=== PATIENT | female | born 1960 | race American Indian/Alaskan Native ===

== ENCOUNTER 2017-05-14 02:39 | Emergency (ER) | payer SELFPAY ==
[2017-05-14 04:56] LABS: Basophils % (Auto) 0.3 % (0.0-1.8); Eosinophils % (Auto) 0.3 % (0.0-4.3); Hematocrit 37.6 % (30.3-42.9); Hemoglobin 12.7 gm/dl (10.1-14.3); Lymphocytes # (Auto) 0.5 K/mm3 (1.2-5.4); Lymphocytes % (Auto) 5.6 % (13.4-35.0); Mean Corpuscular HGB Conc 34 % (30-34); Mean Corpuscular Hemoglobin 31 pg (28-32); Mean Corpuscular Volume 92 fl (79-97); Monocytes # (Auto) 0.6 K/mm3 (0.0-0.8); Monocytes % (Auto) 6.9 % (0.0-7.3); Platelet Count 133 K/mm3 (140-440); Red Cell Distribution Width 13.8 % (13.2-15.2)
[2017-05-14 05:15] LABS: Alanine Aminotransferase 8 units/L (7-56); Albumin 4.1 g/dL (3.9-5); BUN/Creatinine Ratio 14; Blood Urea Nitrogen 7 mg/dL (7-17); Hemolysis Index 4
[2017-05-14 05:47] LABS: Bacteria,Urine 2+ /HPF (Negative); Bilirubin,Urine NEG (Negative); Blood,Urine NEG (Negative); Color,Urine Yellow (Yellow); Mucus,Urine 3+ /HPF
[2017-05-14] MEDS ORDERED: PERCOCET 5/325 PO ONE (06:38)
[2017-05-14] MEDS ORDERED: ZOFRAN ODT PO ONE (06:38)
--- NOTE | 2017-05-14 06:43 | Emergency Department Report ---
ED Abdominal Pain HPI - General Chief Complaint: Abdominal Pain Stated Complaint: ABD PAIN Time Seen by Provider: 05/14/17 06:24 Source: patient, family Mode of arrival: Ambulatory Limitations: No Limitations - History of Present Illness Initial Comments: Mrs. Soto is a healthy 57-year-old female with history of uterine fibroids. She underwent myomectomy at [facility] 6-7 years ago. When the uterine fibroids returned, further surgery was recommended. She elected to decline surgery. She was hoping that the uterine fibroids would decrease in size during menopause. She's never had pain with the fibroids. She's never had any abnormal vaginal bleeding. Until 6 months ago, she was having normal monthly menses. She is now beginning menopause. Now she has still gradual onset of left lower quadrant and right lower quadrant pain radiating to both flanks. She does have abdominal distention. She denies dysuria. She denies urinary frequency. Patient is otherwise healthy without any other medical conditions. MD Complaint: abdominal pain -: Gradual, days(s) (2) Location: LLQ, RLQ Radiation: L flank, R flank Severity scale (0 -10): 10 Quality: aching, sharp Consistency: constant Improves With: rest Worsens With: movement Associated Symptoms: denies other symptoms - Related Data LMP (females 10-50): other (6 months prior) Previous Rx's Medication Instructions Recorded Last Taken Type HYDROcodone/APAP 5-325 [[place] 1 each PO Q4HR PRN #20 tablet 05/14/17 Unknown Rx 5/325] Ibuprofen 800 mg PO Q6HR PRN #20 tablet 05/14/17 Unknown Rx Allergies Allergy/AdvReac Type Severity Reaction Status Date / Time No Known Allergies Allergy Unverified 05/14/17 04:04 ED Review of Systems ROS: Stated complaint: ABD PAIN Other details as noted in HPI Comment: All other systems reviewed and negative Constitutional: denies: fever, malaise Respiratory: denies: cough Cardiovascular: denies: chest pain ED Past Medical Hx - Past Medical History Previous Medical History?: Yes Additional medical history: h/o fibroids - Surgical History Past Surgical History?: Yes Additional Surgical History: fibroidectomy - Social History Smoking Status: Never Smoker Substance Use Type: None - Medications Home Medications: Home Medications Medication Instructions Recorded Confirmed Last Taken Type HYDROcodone/APAP 5-325 [[place] 1 each PO Q4HR PRN #20 tablet 05/14/17 Unknown Rx 5/325] Ibuprofen 800 mg PO Q6HR PRN #20 tablet 05/14/17 Unknown Rx ED Physical Exam - General Limitations: No Limitations General appearance: alert, in no apparent distress - Head Head exam: Present: atraumatic, normocephalic - Eye Eye exam: Present: normal appearance - ENT ENT exam: Present: normal orophraynx, mucous membranes moist - Neck Neck exam: Present: normal inspection. Absent: meningismus - Respiratory Respiratory exam: Present: normal lung sounds bilaterally. Absent: respiratory distress, wheezes, rales, rhonchi - Cardiovascular Cardiovascular Exam: Present: regular rate, normal rhythm, normal heart sounds. Absent: systolic murmur, diastolic murmur, rubs, gallop - GI/Abdominal GI/Abdominal exam: Present: soft, distended, normal bowel sounds, other (20 week uterus palpated fundus of the uterus 6 centimeters above the umbilicus). Absent: tenderness, guarding, rebound - Extremities Exam Extremities exam: Present: normal inspection - Back Exam Back exam: Present: normal inspection - Neurological Exam Neurological exam: Present: alert, oriented X3 - Psychiatric Psychiatric exam: Present: normal affect, normal mood - Skin Skin exam: Present: warm, dry, intact, normal color. Absent: rash ED Course Vital Signs 05/14/17 05/14/17 05/14/17 04:04 05:35 06:00 Temperature 98.4 F 98.2 F Pulse Rate 77 95 H Respiratory 18 19 Rate Blood Pressure 138/81 118/74 Blood Pressure 127/75 [Left] O2 Sat by Pulse 100 99 Oximetry 05/14/17 07:00 Temperature Pulse Rate Respiratory Rate Blood Pressure 121/74 Blood Pressure [Left] O2 Sat by Pulse 99 Oximetry ED Medical Decision Making - Lab Data Result diagrams: 05/14/17 04:37 05/14/17 04:37 Laboratory Results - last 24 hr 05/14/17 05/14/17 05/14/17 04:37 04:37 05:04 WBC 9.3 RBC 4.10 Hgb 12.7 Hct 37.6 MCV 92 MCH 31 MCHC 34 RDW 13.8 Plt Count 133 L Lymph % (Auto) 5.6 L Conway % (Auto) 6.9 Eos % (Auto) 0.3 Baso % (Auto) 0.3 Lymph # 0.5 L Conway # 0.6 Eos # 0.0 Baso # 0.0 Seg Neutrophils % 86.9 H Seg Neutrophils # 8.1 H Sodium 138 Potassium 3.8 Chloride 96.1 L Carbon Dioxide 28 Anion Gap 18 BUN 7 Creatinine 0.5 L Estimated GFR > 60 BUN/Creatinine Ratio 14 Glucose 110 H Calcium 9.0 Total Bilirubin 0.60 AST 15 ALT 8 Alkaline Phosphatase 63 Total Protein 7.6 Albumin 4.1 Albumin/Globulin Ratio 1.2 Urine Color Yellow Urine Turbidity Clear Urine pH 6.0 Ur Specific Whitney 1.023 Urine Protein 30 mg/dl Urine Glucose (UA) Neg Urine Ketones 20 Urine Blood Neg Urine Nitrite Neg Urine Bilirubin Neg Urine Urobilinogen 2.0 Ur Leukocyte Esterase Neg Urine WBC (Auto) 1.0 Urine RBC (Auto) 2.0 U Epithel Cells (Auto) 12.0 Urine Bacteria (Auto) 2+ Urine Mucus 3+ Vital Signs - 24 hr 05/14/17 05/14/17 05/14/17 04:04 05:35 06:00 Temperature 98.4 F 98.2 F Pulse Rate 77 95 H Respiratory 18 19 Rate Blood Pressure 138/81 118/74 Blood Pressure 127/75 [Left] O2 Sat by Pulse 100 99 Oximetry - Medical Decision Making Mrs. Soto presents with pain due to extremely large uterine fibroids. No indication of UTI. No indication of appendicitis. I have referred her to oncologist general operations manager. I prescribed [place]. Critical care attestation.: If time is entered above; I have spent that time in minutes in the direct care of this critically ill patient, excluding procedure time. ED Disposition Clinical Impression: Uterine fibroid, Benign liver cyst Disposition: - TO HOME OR SELFCARE Is pt being admited?: No Does the pt Need Aspirin: No Condition: Stable Instructions: Uterine Fibroids (ED) Prescriptions: HYDROcodone/APAP 5-325 [[place] 5/325] 1 each PO Q4HR PRN #20 tablet PRN Reason: Pain Ibuprofen 800 mg PO Q6HR PRN #20 tablet PRN Reason: Pain Referrals: CAROLA BERGERON MD [Staff Physician] - 3-5 Days Time of Disposition: 09:12
[2017-05-14 07:23] VITALS: BP 121/74
--- NOTE | 2017-05-14 08:44 | Cat Scan Report ---
CT ABDOMEN PELVIS WITHOUT CONTRAST: HISTORY: Lower abdominal pain, history of uterine fibroids. COMPARISON: none. TECHNIQUE: Helical CT in 1.25mm intervals without IV contrast. Sagittal and coronal reconstructions. FINDINGS: Lung bases: Normal. Liver: The liver is normal size, contour and attenuation. There are approximately 6-8 scattered hypodensities throughout the liver consistent with cysts. The largest cyst measures 2.1 cm in the superior left hepatic lobe. Biliary system: Normal. Pancreas: Normal. Spleen: Normal. Kidneys/ureters/bladder: Normal. Adrenal glands: Normal. Aorta: Normal. Intestines: Unremarkable given no oral contrast was administered. Appendix: Not confidently identified. No inflammatory changes in the right lower quadrant. Pelvic viscera: The uterus is markedly enlarged measuring 22 x 13 x 16 cm. Multiple small and large uterine masses consistent with fibroids are identified. The endometrium is not confidently identified on noncontrast CT. Some of the smaller fibroids are calcified. A 4.2 cm and 3.1 cm calcified fibroid or identified near the uterine fundus. One of the largest fibroid appears to have an area of central necrosis/cystic change. This area of cystic change measures up to 10 cm. The ovaries are not confidently identified. Ascites: None. Adenopathy: None. Musculoskeletal: Mild scoliosis is suspected. No fracture or bone lesion. IMPRESSION: Severe uterine fibroid disease as outlined above. This could be further evaluated with pelvic MRI with and without contrast if needed. Scattered liver cysts.
== END 2017-05-14 10:08 | disposition home or self-care (01) ==
LOC: ED 02:39
DX: D25.9 Leiomyoma of uterus, unspecified (principal); K76.89 Other specified diseases of liver
CPT/HCPCS: 36415; 74176; 80053; 81001; 85025; Q0162